=== PATIENT | female | born 1980 ===

== ENCOUNTER → 2019-04-10 | Outpatient (CLI) | payer OTHER | END | disposition home or self-care (01) | LOC: PRENATAL 09:30 | DX: O28.1 Abnormal biochemical finding on antenatal screening of mother (principal); O09.522 Supervision of elderly multigravida, second trimester; O34.211 Maternal care for low transverse scar from previous cesarean delivery; O35.3XX0 Maternal care for (suspected) damage to fetus from viral disease in mother, not applicable or unspecified ==